=== PATIENT | female | born 1980 | race Caucasian/White ===

== ENCOUNTER 2018-12-22 15:38 | Outpatient (REF) | payer BC, SELFPAY ==
--- NOTE | 2018-12-22 13:50 | PAPFT_PTH ---
PATIENT: Orin Vizcarra LOC: [facility] U#:[id number] AGE/SX: 38/F ROOM: RE12/22/[address]: NANO Alcantar : 1980 BED: DIS: 12/22/2018 SPEC #: [id number] RECD: 12/22/18 16:05 STATUS: MARIAM MITCH #: [id number] NAKUL: 12/22/18 13:[address]: Freida Ann DEPT: [facility] Cytology RECD BY: Ayleen Wilks ENTERED: 12/22/18 16:05 SP TYPE: PAPFT OTHR DR: Cesar Brunner, Tissues: 1 - CX/ENDOCX FOR PAP SMEARS Procedures: PAP THIN PREP/[facility] Screening HPV DNA PROBE Comments: [id number]
== END 2018-12-22 15:58 ==
LOC: LBN 15:38
PROVIDERS: PCP Emergency Medicine; Visit Provider Nurse Practitioner Family
DX: Z12.4 Encounter for screening for malignant neoplasm of cervix (principal); Z11.51 Encounter for screening for human papillomavirus (HPV)
CPT/HCPCS: 88142; 87624

== ENCOUNTER 2019-06-05 09:37 | Outpatient (CLI) | payer BC, SELFPAY ==
[2019-06-05 10:37] LABS: HCT 38.4 % (36.0-46.0); HGB 12.9 g/dL (12.0-15.5); Mean Corp. HGB Concentration 33.6 g/dL (32.0-36.0); Mean Corpuscular Hemoglobin 30.7 pg (27.0-33.0); Mean Corpuscular Volume 91.4 fL (80-95); Mean Platelet Volume 10.7 fL (8.0-11.0); Platelet Count 231 x1000/uL (130-400); RBC Distribution Width 13.1 % (11.7-14.6); White Blood Cell Count 5.21 k/cumm (4.4-10.8)
[2019-06-05 11:40] LABS: Anion Gap 9.4 mmol/L (3-11); BUN 20 mg/dL (7-18); CO2 24.6 mmol/L (21.0-32.0); CREATININE 1.03 mg/dL (0.55-1.02); Calcium 9.1 mg/dL (8.5-10.1); Chloride 105 mmol/L (98-107); Estimated GFR 59.97 (mL/min/1.73m2); Glucose 80 mg/dL (70-100); Magnesium 2.1 mg/dL (1.8-2.4); Potassium 4.7 mmol/L (3.5-5.1); Sodium 139 mmol/L (136-145); TSH 2.16 uIU/mL (0.36-3.74)
== END 2019-06-05 09:57 ==
PROVIDERS: PCP Emergency Medicine; Visit Provider Nurse Practitioner Family
DX: I42.2 Other hypertrophic cardiomyopathy (principal); Z95.810 Presence of automatic (implantable) cardiac defibrillator
CPT/HCPCS: 36415; 80048; 85027; 83735; 84443

== ENCOUNTER 2019-07-24 13:03 | Outpatient (CLI) | payer BC, SELFPAY ==
--- NOTE | 2019-07-24 16:00 | DI.RAD_ITS ---
EXAM: XR HAND RT COMPLETE INDICATION: contusion hand. COMPARISON: No exams were available for comparison TECHNIQUE: 2D digital imaging was performed. FINDINGS: There is a minimally displaced 5th metacarpal fracture. There is no evidence of a dislocation. IMPRESSION: Fracture of the distal metaphysis of the fifth metatarsal.
--- NOTE | 2019-07-24 16:36 | DI.VRAD_ITS ---
Addendum created by Néstor Brown MD on 07/24/2019 4:36:17 PM EDT Please change the word metatarsal in the report and impression to the word metacarpal. Initial report created on 07/24/2019 4:35:43 PM EDT PROCEDURE INFORMATION: Exam: XR Right Hand Exam date and time: 07/24/2019 3:57 PM Clinical history: 39 years old, female; Pain; Right; Patient HX: Blunt trauma to hand TECHNIQUE: Imaging protocol: XR Right hand. Views: 3 or more views. COMPARISON: No relevant prior studies available. FINDINGS: Bones/joints: Acute fracture in the mid to distal fifth metatarsal bone. No extension to the articular surface. Mild angulation. Soft tissues: Normal. IMPRESSION: Acute fracture in the mid to distal fifth metatarsal bone. No extension to the articular surface. Mild angulation. Dictated and Authenticated by: Néstor Brown MD. Ordering:KRYSTYNA Lucas MD
== END 2019-07-24 13:23 ==
PROVIDERS: PCP Emergency Medicine; Visit Provider Nurse Practitioner
DX: S60.221A Contusion of right hand, initial encounter (principal); S62.306A Unspecified fracture of fifth metacarpal bone, right hand, initial encounter for closed fracture
CPT/HCPCS: 73130

== ENCOUNTER 2020-10-27 02:56 | Outpatient (CLI) | payer BC, SELFPAY ==
[2020-10-27 11:50] LABS: HCG Quant, Pregnancy 129791 mIU/mL (1-3)
== END 2020-10-27 03:16 ==
PROVIDERS: PCP Emergency Medicine; Visit Provider Obstetrics & Gynecology Maternal & Fetal Medicine
DX: O09.91 Supervision of high risk pregnancy, unspecified, first trimester (principal)
CPT/HCPCS: 36415; 84702

== ENCOUNTER → 2023-08-29 14:18 | Outpatient (CLI) | payer BC, SELFPAY ==
--- NOTE | 2023-08-29 14:00 | DI.MAMMO_ITS ---
Exam(s) MAMMO SCREENING EXAM: MAMMO SCREENING CLINICAL HISTORY: screening z12.39 screening breast cancer TECHNIQUE: Mammograms were interpreted according to the usual protocol including computer analysis w [employer] CAD system, tomosynthesis and C-view imaging. COMPARISON: None FINDINGS: The breasts are composed of heterogeneously dense fibroglandular densities, Breast Density category C . No suspicious masses or suspicious microcalcifications are seen. Circumscribed nodule upper outer qu adrant left breast with coarse calcifications, consistent with fibroadenoma. The patient has a histo ry of benign biopsy in the past. No skin thickening or abnormal axillary lymph nodes are seen. There has been no significant change from prior exams. IMPRESSION: BI-RADS Category 2 - Negative Mammogram with benign findings. Yearly screening mammography is recomm ended. Breast Density Category C, heterogeneously Dense. The mammogram demonstrates the patient's breast tissue is dense. Dense breast tissue is very common a nd is not abnormal but dense breast tissue can make it harder to find cancer on a mammogram. Also, de nse breast tissue may increase breast cancer risk. This information about the result of the mammogram report was provided to the patient to raise their awareness. Use this report when you speak with the patient about their risks for breast cancer, which includes their family history. At that time, you may recommend additional screening tests (Ultrasound or MRI) as they might be useful based on their r isk. A negative radiographic report should not delay biopsy if a dominant or clinically suspicious mass is present. Up to ten percent of cancers are not identified on mammography. A negative report may reinforce clinical impression. Adenosis and dense breasts may obscure an underlying neoplasm. False positive reports average 6 to 10%.
--- NOTE | 2023-08-29 14:08 | DI.RAD_ITS ---
Exam(s) XR CHEST 2V PA LATERAL EXAM: XR CHEST 2V PA LATERAL CLINICAL HISTORY: productive cough, R05.9 TECHNIQUE: 2D digital imaging was performed. COMPARISON: CR CHEST 2 VIEWS PA,LAT from 08/07/2014 FINDINGS: Pacemaker is noted at the left lower lateral chest wall. HEART: Normal size. Aorta: Not dilated. PULMONARY VASCULATURE: Normal. LUNGS: Clear. PLEURAL SPACE: No pleural effusion or pneumothorax. BONE:Unremarkable for age. IMPRESSION: No acute abnormality. DATA REPOSITORY: RADIATION DOSE DELIVERED:
== END ==
PROVIDERS: PCP Nurse Practitioner Family; Visit Provider Nurse Practitioner Family
DX: R05.9 Cough, unspecified (principal); Z12.31 Encounter for screening mammogram for malignant neoplasm of breast
CPT/HCPCS: 77063; 77067; 71046

== ENCOUNTER 2024-01-03 14:59 | Outpatient (REF) | payer BC, SELFPAY ==
--- NOTE | 2024-01-03 14:15 | PAPFT_PTH ---
PATIENT: Orin Vizcarra LOC: [facility] U#:[id number] AGE/SX: 43/F ROOM: RE01/03/[address]: Shiraz Pressley DNP : 1980 BED: DIS: 01/03/2024 SPEC #: [id number] RECD: 01/04/24 13:13 STATUS: MARIAM REQ #: [id number] NAKUL: 01/03/24 14:[address]: Shiraz Haywood DEPT: [facility] Cytology RECD BY: Ayleen Wilks Tissues: 1 - CX/ENDOCX FOR PAP SMEARS Procedures: PAP THIN PREP/[facility] Screening HPV DNA PROBE Comments: [id number]
== END 2024-01-03 15:00 | disposition home or self-care (01) ==
LOC: LBN 14:59
PROVIDERS: PCP Nurse Practitioner Family; Visit Provider Nurse Practitioner Family
DX: Z12.4 Encounter for screening for malignant neoplasm of cervix (principal); Z11.51 Encounter for screening for human papillomavirus (HPV)
CPT/HCPCS: 88142; 87624

== ENCOUNTER 2024-07-20 00:24 | Outpatient (CLI) | payer BC, SELFPAY ==
--- NOTE | 2024-07-20 07:50 | DI.RAD_ITS ---
Exam(s) XR CHEST 2V PA LATERAL EXAM: XR CHEST 2V PA LATERAL CLINICAL HISTORY: evaluate pathology,COUGH,R05.9 TECHNIQUE: 2D digital imaging was performed. Two views. COMPARISON: CR XR CHEST 2V PA LATERAL from 08/29/2023 FINDINGS: HEART: Normal size. Aorta: Not dilated. PULMONARY VASCULATURE: Normal. MEDIASTINUM: Unremarkable. LUNGS: Small streaky infiltrate at the left lung base. Otherwise clear. PLEURAL SPACE: No pleural effusion or pneumothorax. BONE:Unremarkable for age. SOFT TISSUES: Trunk device again noted in anterior chest wall with battery pack on the left laterally . This somewhat obscures the overlying lungs on the lateral view. IMPRESSION: Small left lower lobe infiltrate. DATA REPOSITORY: RADIATION DOSE DELIVERED:
== END 2024-07-20 00:44 ==
LOC: DI 00:24
PROVIDERS: PCP Nurse Practitioner Family; Visit Provider Nurse Practitioner Family
DX: R91.8 Other nonspecific abnormal finding of lung field (principal)
CPT/HCPCS: 71046

== ENCOUNTER 2025-02-14 00:42 | Outpatient (CLI) | payer BC, SELFPAY ==
--- NOTE | 2025-02-14 07:30 | DI.MAMMO_ITS ---
Exam(s) MAMMO SCREENING EXAM: MAMMO SCREENING CLINICAL HISTORY: screening,z12.39. TECHNIQUE: Bilateral full field digital CC and MLO mammographic images were obtained with 3D tomosyn thesis and utilizing computer aided detection (CAD). COMPARISON: Prior mammograms were reviewed. FINDINGS: The fibroglandular tissue pattern is again noted be moderately dense. No new right breast findings. The upper outer quadrant of the left breast there is an unchanged partially calcified lobulated nodul e which is probably a fibroadenoma There are no new spiculated masses nor new malignant appearing microcalcification groups. There is no significant architectural distortion nor skin thickening-retraction. IMPRESSION: Stable benign-appearing findings. No radiographic evidence of malignancy. BI-RADS Category 2 - Benign Findings Breast Density - Category C - Heterogeneously dense Breast density Category C or D implies that the patient has dense breast tissue. Dense breast tissue can make it harder to find cancer on a mammogram. Dense breast tissue is also associated with an incr eased risk of breast cancer. This information about the result of the mammogram report was provided to the patient to raise their awareness. Use this report when you speak with the patient about their risks for breast cancer, which includes their family history. At that time, you may recommend additional screening tests (Ultrasoun d or MRI) as these tests may add significant information. A negative radiographic report should not delay biopsy if a dominant or clinically suspicious mass is present. Up to ten percent of cancers are not identified on mammography. A negative report may reinforce clinical impression. Adenosis and dense breasts may obscure an underlying neoplasm. False positive reports average 6 to 10%. Patient will receive a letter notifying them of these results.
== END 2025-02-14 01:02 ==
LOC: DI 00:42
PROVIDERS: PCP Nurse Practitioner Family; Visit Provider Nurse Practitioner Family
DX: Z12.31 Encounter for screening mammogram for malignant neoplasm of breast (principal); R92.333 Mammographic heterogeneous density, bilateral breasts; D24.2 Benign neoplasm of left breast
CPT/HCPCS: 77063; 77067